=== PATIENT | female | born 1985 | race Caucasian/White ===

== ENCOUNTER 2018-01-24 08:52 | Emergency (ER) | payer OTHER ==
[2018-01-24 09:19] VITALS: BP 120/73
--- NOTE | 2018-01-24 09:50 | ED ---
Upper Extremity Pain - HPI Summary HPI Summary: 32 yr old female with the complaint of left shoulder pain. Onset two days ago when lifting a dog at [place]. Pain over the anterior lateral shoulder. Worse with forward flexion shoulder and abduction of the shoulder. No fever or chills. No redness or swelling to the area. Pain worse at night when trying to sleep. Pain is moderate. She was diagnosed 18 months with left shoulder rotator cuff injury by orthopedics after falling off of her horse. She improved with a couple weeks of PT - History of Current Complaint Chief Complaint: UCUpperExtremity Stated Complaint: WC LEFT SHOULDER INJURY Time Seen by Provider: 01/24/18 09:25 - Allergies/Home Medications Allergies/Adverse Reactions: Allergies Allergy/AdvReac Type Severity Reaction Status Date / Time guaifenesin [From Robitussin] Allergy Coughing Verified 01/24/18 09:15 Home Medications: Home Medications medroxyPROGESTERone ACETATE* [DEPO-Provera] 150 mg IM ONCE 01/24/18 [History Confirmed 01/24/18] PMH/Surg Hx/FS Hx/Imm Hx - Surgical History Surgery Procedure, Year, and Place: breast augmentation 2017 Infectious Disease History: No Infectious Disease History: Denies: Traveled Outside the [place] in Last 30 Days - Family History Known Family History: Positive: None - Social History Occupation: Employed Full-time Alcohol Use: Occasionally Substance Use Type: Reports: None Smoking Status (MU): Never Smoked Tobacco Review of Systems Constitutional: Negative Positive: Other - left shoulder pain All Other Systems Reviewed And Are Negative: Yes Physical Exam Triage Information Reviewed: Yes Vital Signs On Initial Exam: Initial Vitals Temp Pulse Resp BP Pulse Ox 99.1 F 77 13 120/73 100 01/24/18 09:11 01/24/18 09:11 01/24/18 09:11 01/24/18 09:11 01/24/18 09:11 Vital Signs Reviewed: Yes Appearance: Positive: Well-Appearing, No Pain Distress Skin: Positive: Warm, Skin Color Reflects Adequate Perfusion Head/Face: Positive: Normal Head/Face Inspection Eyes: Positive: EOMI ENT: Positive: Normal ENT inspection Neck: Positive: Supple, Nontender Respiratory/Lung Sounds: Positive: Other - normal respiratory effort. Negative : Stridor Cardiovascular: Positive: Pulses are Symmetrical in both Upper and Lower Extremities Musculoskeletal: Positive: Other - left shoulder not red, no swelling. She has some tenderness over the left AC joint. Increased discomfort on forward flexion and abduction left shoulder. Neuro vasc intact left hand Neurological: Positive: Sensory/Motor Intact, Alert, Oriented to Person Place, Time, CN Intact II-III Psychiatric: Positive: Normal - [place] Coma Scale Best Eye Response: 4 - Spontaneous Best Motor Response: 6 - Obeys Commands Best Verbal Response: 5 - Oriented Coma Scale Total: 15 Diagnostics - Vital Signs Vital Signs Temp Pulse Resp BP Pulse Ox 01/24/18 09:11 99.1 F 77 13 120/73 100 - Laboratory Lab Statement: Any lab studies that have been ordered have been reviewed, and results considered in the medical decision making process. - Radiology shoulder left Xray Interpretation: No Acute Changes Radiology Interpretation Completed By: Radiologist Course/Dx - Course Course Of Treatment: Shoulder rotator cuff strain. Plan follow up with Dr Cunha whos office she has gone to before. - Diagnoses Provider Diagnoses: Rotator cuff injury Discharge - Sign-Out/Discharge Documenting (check all that apply): Patient Departure All imaging exams completed and their final reports reviewed: Yes - Discharge Plan Condition: Good Disposition: HOME Prescriptions: Ibuprofen TAB* [Motrin TAB* 600 MG] 600 mg PO Q8H PRN #20 tab PRN Reason: Pain Patient Education Materials: Rotator Cuff Injury (ED) Referrals: No Primary Care Phys,NOPCP [Primary Care Provider] - River Cunha MD [Medical Doctor] - 2 Days - Billing Disposition and Condition Condition: GOOD Disposition: Home
--- NOTE | 2018-01-24 10:01 | RAD ---
HISTORY: pain in shoulder COMPARISONS: None VIEWS: 4 , Frontal internal rotation, external rotation, outlet, and axillary views of the left shoulder FINDINGS: BONE DENSITY: Normal. BONES: There is no displaced fracture. JOINTS: There is no arthropathy. ALIGNMENT: There is no dislocation. SOFT TISSUES: Unremarkable. OTHER FINDINGS: None. IMPRESSION: NO ACUTE OSSEOUS INJURY. IF SYMPTOMS PERSIST, RECOMMEND REPEAT IMAGING.
== END 2018-01-24 10:15 | disposition home or self-care (01) ==
LOC: UCCORT 08:52
DX: S46.002A Unspecified injury of muscle(s) and tendon(s) of the rotator cuff of left shoulder, initial encounter (principal); X50.0XXA Overexertion from strenuous movement or load, initial encounter; Y93.89 Activity, other specified; Y92.89 Other specified places as the place of occurrence of the external cause; Y99.0 Civilian activity done for income or pay
CPT/HCPCS: 99202; G0463

== ENCOUNTER 2018-08-16 07:42 | Emergency (ER) | payer BC ==
--- OUTSIDE RECORDS SUMMARY | 2018-08-16 08:09 | XMS REPORT | Continuity of Care Document ---
:1985 Author Organization [facility] Address [address], [place] [id number] Phone Care Team Providers Name Role Phone Shabana Downing NP Unavailable Unavailable [facility], NURSE OR MA Unavailable Unavailable Allergies, Adverse Reactions, Alerts Substance Reaction Status PSEUDOEPHEDRINE HCL Active doxylamine Active DEXTROMETHORPHAN HBR Active acetaminophen Active Medications Medication Instructions Dosage Effective Dates Status Comments (start - stop) valacyclovir 500 mg take 1 tablet by oral 500 MG - Active tablet route every day FOR 3 DAYS Depo-Provera 150 mg/mL IM Q 11-13 weeks - Active intramuscular suspension Problems Condition Effective Dates (start - Clinical Status Comments stop) Encounter for surveillance of injectable contraceptive Encounter for surveillance of injectable contraceptive Human immunodeficiency virus [HIV] - counseling Encounter for surveillance of injectable contraceptive Encounter for surveillance of injectable contraceptive Encounter for surveillance of injectable contraceptive Encounter for surveillance of injectable contraceptive Human immunodeficiency virus [HIV] - counseling Encntr screen for infections w sexl mode of transmiss Encounter for screening for human - immunodeficiency virus Encounter for surveillance of injectable contraceptive Encounter for oth general cnsl and - advice on contraception Encounter for surveillance of injectable contraceptive Encounter for surveillance of injectable contraceptive Encounter for surveillance of injectable contraceptive Encounter for surveillance of injectable contraceptive Encntr for internist exam (general) (routine) w/o abn findings Encounter for surveillance of injectable contraceptive Encounter for surveillance of injectable contraceptive Encounter for surveillance of injectable contraceptive Encounter for surveillance of injectable contraceptive Encntr screen for infections w sexl mode of transmiss Ulceration of vulva Encounter for surveillance of injectable contraceptive Encounter for surveillance of injectable contraceptive Encounter for surveillance of injectable contraceptive BCM Other, Surveillance BCM Other, Surveillance BCM Other, Surveillance BCM Other, Surveillance BCM Other, Surveillance BCM Other, Surveillance PAP, Abnormal-NOS Procedures Procedure Date INJECTION OR LAB ONLY VISIT EST OTHER Medical Services Contraceptive DEPO INJECTION DEPO/CEFTRIAXONE Results Test Name Date and Time Measure Units Reference Range Abnormal Flag Status Comments No information Advance Directives Directive Yes / No Effective Date File Name No information Encounters Encounter Practice Location Reason(s) Diagnoses Date Provider Providers Description For Visit Copied on Encounter [facility] Encounter for Chang Donald. Referring [facility] [place] surveillance of [address] Provider: [facility] injectable [address], [place], [place], [address], [address], [place], , [place], [address].Consu [id number], [facility] [place] Provider: tel:[phone] NURSE OR VIVIANA [id number] [facility]. [facility] [place]. [address], [place], [place], [facility], [facility] [address]. [address] tel:[phone] [facility], [address] [place], [id number], tel:[phone] [facility] Encounter for Chrissidis Referring [facility] [place] surveillance of Annemarie. [address] Provider: Southern injectable [address], Ann[place] contraceptive [place], [place], Raphaelidis [facility], [facility] [address]. , [address] tel:[phone], [facility], [address] [place], [place], [address]. [id number], tel:[phone] [place] [phone] tel:[phone] [facility] [phone] Provider: NURSE OR VIVIANA [facility]. [facility] Human Feb-0 [facility] [place] immunodeficienc bel [place]. [facility] y virus [HIV] 8 [address] [place] counselingEncou , [place], [facility], [address] [place], [address]. [address] surveillance of tel:[phone] [facility], injectable [address] [place], contraceptive [id number], [place] tel:[phone] [facility] Encounter for [facility] Referring [facility] [place] surveillance of Mari. [address] Provider: [facility] injectable 8 [facility], [place] contraceptive [place], [facility], [facility] [address]. [address] tel:[phone] [facility], [facility], [address] [place], [place], [address]. [id number], tel:[phone] [place] [phone] tel:[phone] lting [phone] Provider: NURSE OR VIVIANA [facility]. [facility] Encounter for Guggino Referring [facility] [place] surveillance of Rachel. Provider: [facility] injectable 8 [address] Rachel [place] contraceptive [facility], Guggino F, [facility], [address] [place], [address], [address] [place], [facility], tel:[phone] [place], [place], [address]. [id number], tel:[phone] [place] [phone] tel:[phone] lting [phone] Provider: NURSE OR VIVIANA [facility]. [facility] Encounter for [facility] Referring [facility] [place] surveillance of Mari. [address] Provider: [facility] injectable 8 [facility], [place] contraceptive [place], [facility], [address] [address]. [address] tel:[phone] [facility], [facility], [address] [place], [place], [address]. [id number], tel:[phone] [place] [phone] tel:[phone] lting [phone] Provider: NURSE OR VIVIANA [facility]. [facility] Referring [facility] [place] immunodeficienc 0-201 bel Sueane. Provider: [facility] y virus [HIV] 7 [address] Sueane [place] counselingEncnt [facility], [facility], [address] [place], [address]. mmer, [address] infections w tel:[phone] [address], , [place], [place] [address] [place], [place], [place], transmissEncoun [address]. [id number], ter for tel:[phone] [place] screening for [phone] tel:[phone] human [phone] immunodeficienc y virus [facility] Encounter for Nov-2 [facility] Referring [facility] [place] surveillance of 0-201 Mari. [address] Provider: [facility] injectable 7 [facility], [place] contraceptive [place], [place], [facility], [facility] [address]. [address] tel:[phone] Buddhism , [facility], [address] [place], [place], [address]. [id number], tel:[phone] [place] [phone] tel:[phone] lting [phone] Provider: NURSE OR VIVIANA [facility]. [facility] Encounter for Sep-0 [facility] general 7-201 [place]. [address] cnsl and advice [address], [place], [place], [facility], [facility] contraceptionEn [address]. [address] counter for tel:[phone] [facility], [place] [address] [place], injectable [id number], contraceptive [place] tel:[phone] [facility] Encounter for Nithin-1 [facility] [place] surveillance of 5-201 Mari. [address] Provider: [facility] injectable 7 [facility], NURSE OR [place] contrace[place], [facility]. [place] [address]. [address] tel:[phone] St, [place], [address] [place], [id number], [place] tel:[phone] [facility] Encounter for Apr-0 [facility] [place] surveillance of 6-201 bel Sueane. Provider: [facility] injectable 7 [address] NURSE OR [place] contraceptive , [place], [facility]. [facility], [facility] [place], [address]. [address] tel:[phone] [facility], [address] [place], [id number], [place] tel:[phone] [facility] Encounter for Joseluis-2 [facility] [place] surveillance of Mari. [address] Provider: [facility] injectable [address], NURSE OR [place] contrace[place], [facility]. [place] [address]. [address] tel:[phone] St, [place], [address] [place], [id number], [place] tel:[phone] [facility] Encntr for internist Nov-0 [facility] [place] exam (general) - Mari. [address] [facility] (routine) w/o [address], [place], [facility], [facility] findingsEncount [address]. [address] er for tel:[phone] [facility], [place] [address] [place], injectable [id number], contraceptive [place] tel:[phone] [facility] Encounter for Sep- [facility] [place] surveillance of Mari. [address], [place] contraceptive [place], [place], [facility], [facility] [address]. [address] tel:[phone] St, [place], [address] [place], [id number], [place] tel:[phone] [facility] Encounter for Dec- Arben [facility] [place] surveillance of [address]. 135 Provider: [facility] injectable 6 [facility], NURSE OR [place] contraceptive [place], [place], [facility]. [place] [address], [place]. [address] tel:[phone] [facility], [address] [place], [id number], [place] tel:[phone] [facility] Encounter for Nithin- [facility] [place] surveillance of Mari. [address] Provider: [facility] injectable 6 [facility], NURSE OR [place] contrace[place], [facility]. [place] [address]. [address] tel:[phone] St, [place], [address] [place], [id number], [place] tel:[phone] [facility] Encntr screen September- [facility] [place] for infections Mari. [address] w sexl mode of [address], [place] transmissUlcera [place], [place], [facility], [facility] tion of vulva [address]. [address] tel:[phone] St, [place], [address] [place], [id number], [place] tel:[phone] [facility] Encounter for Mar-2 [facility] [place] surveillance of 8-201 Mari. [address] Provider: [facility] injectable 6 [facility], NURSE OR [place] contrace[place], [facility]. [place] [address]. [address] tel:[phone] St, [place], [address] [place], [id number], [place] tel:[phone] [facility] Encounter for May- [facility] [place] surveillance of 1-201 bel Sueane. Provider: [facility] injectable 6 [address] NURSE OR [place] contraceptive [facility], [facility]. [place] [address] [place], [address]. [address] tel:[phone] [facility], [address] [place], [id number], [place] tel:[phone] [facility] Encounter for Feb- Arben [facility] [place] surveillance of 5-201 Prabh[address]ot. 135 Provider: [facility] injectable [address], NURSE OR [place] contraceptive [place], [facility]. [place] [address], [place]. [address] tel:[phone] St, [place], [address] [place], [id number], [place] tel:[phone] [facility] BCM Other, Niko-2 [facility] [place] Surveillance 0-201 Mari. [address] [facility] [address], [place], [place], [place] [address]. [address] tel:[phone] St, [place], [address] [place], [id number], [place] tel:[phone] [facility] BCM Other, Apr-2 [facility] [place] Surveillance 0-201 Mari. [address] [facility] [address], [place], [place], [facility], [facility] [address]. [address] tel:[phone] St, [place], [address] [place], [id number], [place] tel:[phone] [facility] BCM Other, [facility] [place] Surveillance 6 Mari. [address] [facility] 5 [facility], [place], [place], [facility], [facility] [address]. [address] tel:[phone] [facility], [address] [place], [id number], [place] tel:[phone] [facility] BCM Other, [facility] [place] Surveillance Provider: [place] [address] NURSE OR [place] [facility]. [facility], [facility] [place], [place], [id number], [place] tel:[phone] [facility] BCM Other, [facility] [place] Surveillance 8 Mari. [address] [facility] 4 [facility], [place], [place], [facility], [address] [address]. [address] tel:[phone] [facility], [address] [place], [id number], [place] tel:[phone] [facility] BCM Other, [facility] [place] SurveillancePAP 4- bel Sueane. [facility] , Abnormal-NOS 4 [address] [facility], [address] [place], [address]. [address] tel:[phone] [facility], [address] [place], [id number], [place] tel:[phone] Family History Family Member Diagnosis Age At Onset GRANDMOTHER Diabetes mellitus No family history of Cancer, colon Mother No history of Stroke before age 65 No family history of Cancer, ovarian 1st degree relative No hx of venous thromboembolism Mother No history of Myocardial infarction before age 65 1st degree relative No hx of osteoporosis 1st degree relative No hx of coronary heart disease (female <65, male <55) Father No history of Stroke before age 55 1st degree relative No hx of cancer of breast, colon, endometrium or ovary No family history of Cancer, breast Father No history of Myocardial infarction before age 55 Maternal grandmother Diabetes mellitus Immunizations Vaccine Date Status Comments No information Payers Payer name Insurance type Covered libertarian ID Authorization(s) [place] [facility] [id number] Social History Type Description Quantity Date Captured Comments Alcohol Use Details Unknown Caffeine Use Details Unknown Tobacco Use Status Unknown Smoking Status Never smoker Sex Female Vital Signs Date / Height Weight BMI Pulse Blood Temperature Respiratory Body Head BMI Pulse Inhaled Time: Rate Pressure Rate Surface Circumference percentile Ox Ox Area No information Chief Complaint And Reason For Visit No information Reason For Referral Reason For Referral No information Plan Of Treatment Date Type Action Status No information History Of Present Illness Encounter Date Complaint History Of Present Illness No information Functional Status Date Functional Assessment No information Medications Administered Medication Instructions Dosage Effective Dates (start - stop) Status Comments No information Instructions Date Instruction Additional Information No information Assessments Type Assessment Date assessment Encounter for surveillance of injectable contraceptive Goals Health Concern Goal Type Priority Status Date No information Medical Equipment Description Device [place]au Device Identifier Effective Dates (start - stop ) Status No information Mental Status Date Cognitive Assessment No information Health Concerns Observation Date No information Concern Status Date No information
[2018-08-16 08:33] VITALS: BP 126/70
--- NOTE | 2018-08-16 09:01 | ED ---
Skin Complaint - HPI Summary HPI Summary: 23 yr old female with rash that is generalized. Onset Monday. She had been on Bactrim for over a week for a skin infection, and that got better, but after about 8 days of bactrim she had flushed feeling in face ears got red, and then the rash broke out all over her body. It is better to day than yesterday and after benadryl. She had some aches when the rash first broke out. She is feeling better now, and she has no had fever. - History of Current Complaint Chief Complaint: UCRash Time Seen by Provider: 08/16/18 08:58 Stated Complaint: BODY ACHES/SKIN COMPLAINT Hx Last Menstrual Period: unknown Pain Intensity: 0 - Allergy/Home Medications Allergies/Adverse Reactions: Allergies Allergy/AdvReac Type Severity Reaction Status Date / Time guaifenesin [From Robitussin] Allergy Coughing Verified 08/16/18 08:26 Home Medications: Home Medications Dm/PE/Acetaminophen/Doxylamine [Tylenol Cold Max Night Liquid] 240 ml PO Q4H PRN 08/16/18 [History Confirmed 08/16/18] PMH/Surg Hx/FS Hx/Imm Hx - Surgical History Surgery Procedure, Year, and Place: breast augmentation 2017 Infectious Disease History: No Infectious Disease History: Denies: Traveled Outside the [place] in Last 30 Days - Family History Known Family History: Positive: None - Social History Occupation: Employed Full-time Lives: With Family Alcohol Use: Occasionally Substance Use Type: Reports: None Smoking Status (MU): Never Smoked Tobacco Review of Systems Negative: Fever, Chills Positive: Rash All Other Systems Reviewed And Are Negative: Yes Physical Exam Triage Information Reviewed: Yes Vital Signs On Initial Exam: Initial Vitals Temp Pulse Resp BP Pulse Ox 97.9 F 101 16 126/70 100 08/16/18 08:29 08/16/18 08:29 08/16/18 08:29 08/16/18 08:29 08/16/18 08:29 Vital Signs Reviewed: Yes Appearance: Positive: Well-Appearing, No Pain Distress Skin: Positive: Warm, Other - macular, papular skin eruption that appears consistent with sulfa type eruption. No mucous membrane involvement, and no target lesions. Head/Face: Positive: Normal Head/Face Inspection Eyes: Positive: EOMI, JASEN ENT: Positive: Pharynx normal, TMs normal Neck: Positive: Nontender Respiratory/Lung Sounds: Positive: Clear to Auscultation, Breath Sounds Present Cardiovascular: Positive: RRR. Negative: Murmur Abdomen Description: Negative: Distended Musculoskeletal: Positive: Strength/ROM Intact Neurological: Positive: Sensory/Motor Intact, Alert, Oriented to Person Place, Time, CN Intact II-III, Normal Gait, Speech Normal Psychiatric: Positive: Normal Diagnostics - Vital Signs Vital Signs Temp Pulse Resp BP Pulse Ox 08/16/18 08:29 97.9 F 101 16 126/70 100 - Laboratory Lab Statement: Any lab studies that have been ordered have been reviewed, and results considered in the medical decision making process. Course/Dx - Course Course Of Treatment: 33 yr old with skin eruption that appears to be from bactrim. She is getting better after stopping the bactrim and beginning benadryl the past 2 days. - Diagnoses Provider Diagnoses: Sulfa sensitivity, Rash Discharge - Sign-Out/Discharge Documenting (check all that apply): Patient Departure All imaging exams completed and their final reports reviewed: No Studies - Discharge Plan Condition: Good Disposition: HOME Patient Education Materials: Acute Rash (ED), Antibiotic Medication Allergy (ED ) Referrals: No Primary Care Phys,NOPCP [Primary Care Provider] - [facility] PHYSICIAN REFERRAL [Outside] Additional Instructions: DO not take sulfa drugs. - Billing Disposition and Condition Condition: GOOD Disposition: Home
== END 2018-08-16 09:12 | disposition home or self-care (01) ==
LOC: UCCORT 07:42
DX: L27.0 Generalized skin eruption due to drugs and medicaments taken internally (principal); T37.0X5A Adverse effect of sulfonamides, initial encounter; Z88.8 Allergy status to other drugs, medicaments and biological substances; Y92.9 Unspecified place or not applicable
CPT/HCPCS: 99211; G0463